=== PATIENT | male | born 1975 | race African-American/Black ===

== ENCOUNTER 2018-06-24 10:52 | Emergency (ER) | payer OTHER ==
[2018-06-24] MEDS ORDERED: Dexamethasone 10 MG/ML VIAL ONE (12:15)
--- NOTE | 2018-06-24 13:06 | RAD ---
CHEST PA AND LATERAL: HISTORY: A 43-year-old male with history of cough. FINDINGS: Heart size is within normal limits. Old granulomatous disease. Mild biapical pleural thickening. N o confluent pneumonia, overt edema, or pleural effusion. IMPRESSION: No acute intrathoracic disease. Old granulomatous disease. POS: [facility]
== END 2018-06-24 12:53 | disposition home or self-care (01) ==
LOC: ERS 10:52
DX: J45.901 Unspecified asthma with (acute) exacerbation (principal); B34.9 Viral infection, unspecified; I10 Essential (primary) hypertension; F17.210 Nicotine dependence, cigarettes, uncomplicated
CPT/HCPCS: 71046; 87804; 94640; J1100; J7620

== ENCOUNTER 2024-05-14 08:08 | Emergency (ER) | payer OTHER ==
[2024-05-14] MEDS ORDERED: Lidocaine 1% w/Epinephrine 1:100K 20 ML VIAL ONE (08:24)
== END 2024-05-14 08:57 | disposition home or self-care (01) ==
LOC: ERS 08:08
DX: L02.31 Cutaneous abscess of buttock (principal); F17.210 Nicotine dependence, cigarettes, uncomplicated; J45.909 Unspecified asthma, uncomplicated; Z79.51 Long term (current) use of inhaled steroids
CPT/HCPCS: 10060